=== PATIENT | male | born 1985 | race Caucasian/White ===

== ENCOUNTER 2018-01-15 18:31 | Inpatient (IN) | payer BC, OTHER ==
[~2018-01-15] VITALS: Ht 177.8 cm; Wt 81.6 kg
--- NOTE | 2018-01-15 19:15 | NUR ---
Pre-admission Note Assessment done in intake office. Px appears anxious and depressed. He is disheveled and unshaven with flat affect. A&Ox4. Px is ambulatory with steady gait. Px is here for medically supervised withdrawal from Clonazepam and ETOH. Px has clear and audible speech. VS are as follows BP= 156/110, RI= 70, RR=15, T= 96.5, O2sat= 98% on RA. Px has H/A of 4/10. Px denies any withdrawal-induced seizures. Px brought home medications to be reconciled. Admission process will continue in the unit.
[2018-01-15] MEDS ORDERED: PARO30TA4 PO (19:32)
[2018-01-15] MEDS ORDERED: LOSA100T3 PO (19:33)
[2018-01-15 20:00] VITALS: BP 162/109
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
--- NOTE | 2018-01-15 20:00 | NUR ---
CIWA 17 Px appears anxious and depressed. Px stated that his anxiety is 5-6/10. He has H/A 4/10 and numbness/paresthesia on both LE. Mild stomach cramps is present and mild bilateral hand tremors.
[2018-01-15] MEDS ORDERED: ONDANSETRON ODT 4 MG TAB.RAPDIS SL PRN (20:15)
[2018-01-15] MEDS ORDERED: IBUPROFEN 400 MG TABLET PO PRN (20:15)
[2018-01-15] MEDS ORDERED: ACETAMINOPHEN 325 MG TABLET PO PRN (20:15)
[2018-01-15] MEDS ORDERED: HYDROXYZINE PAMOATE 25 MG CAPSULE PO PRN (20:15)
[2018-01-15] MEDS ORDERED: ONDANSETRON 4 MG/2 ML VIAL IM PRN (20:15)
[2018-01-15] MEDS ORDERED: LORAZEPAM 1 MG TABLET PO PRN ×2 (20:15)
[2018-01-15] MEDS ORDERED: MIRALAX 17 GM POWD.PACK PO PRN (20:15)
[2018-01-15] MEDS ORDERED: THIAMINE HCL 200 MG/2 ML VIAL IM ONE (20:15)
[2018-01-15] MEDS ORDERED: MAG HYDROX/AL HYDROX/SIMETH 30 ML LIQUID UDC PO PRN (20:15)
[2018-01-15] MEDS ORDERED: MAGNESIUM HYDROXIDE 30 ML LIQUID UDC PO PRN (20:15)
[2018-01-15] MEDS ORDERED: LOPERAMIDE HCL 2 MG CAPSULE PO PRN ×2 (20:15)
[2018-01-15] MEDS ORDERED: LORAZEPAM 2 MG/1 ML VIAL IM PRN (20:15)
[2018-01-15 20:45] LABS: *AMPHETAMINE, URINE NEGATIVE (NEGATIVE); *BARBITURATE, URINE NEGATIVE (NEGATIVE); *CANNABINOID, URINE NEGATIVE (NEGATIVE); *COCCAINE, URINE NEGATIVE (NEGATIVE); *OPIATE, URINE NEGATIVE (NEGATIVE); *PHENCYCLIDINE SCREEN,URINE NEGATIVE (NEGATIVE)
[2018-01-15] MEDS: CLONIDINE HCL 0.1 MG TABLET PO PRN (20:59)
--- NOTE | 2018-01-15 20:59 | NUR ---
PRN medications Px received Ativan 2 mg PO for CIWA 17, Clonidine 0.1 mg PO for BP= 162/109, and Tylenol 650 mg PO for H/A of 4/10. We'll continue to monitor.
--- NOTE | 2018-01-15 21:59 | NUR ---
CIWA 12 Px still appears anxious and depressed. Px stated that his anxiety is better. His H/A is gone. Px numbness/paresthesia on both LE is still there. Mild stomach cramps is present and mild bilateral hand tremors.
--- NOTE | 2018-01-15 22:00 | NUR ---
Reassessment of anxiety, H/A and BP Px stated that he feels better now. BP= 146/94. H/A is gone.
[2018-01-15 22:50] LABS: BASOPHILS # (AUTO) 0.1 K/uL (0.0-8.0); BASOPHILS % (AUTO) 0.6 % (0.0-2.0); EOSINOPHILS # (AUTO) 0.1 K/uL (0.0-0.7); EOSINOPHILS % (AUTO) 1.4 % (0.0-7.0); HEMATOCRIT 39.9 % (36.7-47.1); LYMPHOCYTES # (AUTO) 3.7 K/uL (20.0-40.0); LYMPHOCYTES % (AUTO) 38.8 % (20.5-51.5); MEAN CORPUSCULAR HEMOGLOBIN 29.9 uug (23.8-33.4); MEAN CORPUSCULAR HGB CONC 35 g/dL (32.5-36.3); MEAN CORPUSCULAR VOLUME 85.3 fL (73.0-96.2); MONOCYTES # (AUTO) 0.7 K/uL (2.0-10.0); MONOCYTES % (AUTO) 7.6 % (0.0-11.0); NEUTROPHILS # (AUTO) 4.9 K/uL (1.8-8.9); NEUTROPHILS % (AUTO) 51.6 % (38.5-71.5); PLATELET COUNT (AUTO) 154 K/uL (152-348); RED BLOOD CELL COUNT(AUTO) 4.68 MIL/uL (4.06-5.63); WHITE BLOOD COUNT (AUTO) 9.5 K/uL (3.6-10.2)
[2018-01-15 22:53] LABS: ETHANOL < 3 MG/DL (0-0)
[2018-01-15 23:04] LABS: ALANINE AMINOTRANSFERASE 34 U/L (16-63); ALKALINE PHOSPHATASE 75 U/L (50-136); AMYLASE 44 U/L (25-115); ASPARTATE AMINOTRANSFERASE 29 U/L (15-37); BILIRUBIN,TOTAL 0.7 mg/dL (0.2-1.0); CARBON DIOXIDE 30 mmol/L (21-32); CHLORIDE 102 mmol/L (98-107); GLUCOSE 96 mg/dL (74-106); LIPASE 270 U/L (73-393); MAGNESIUM 1.8 mg/dL (1.8-2.4); POTASSIUM 3.7 mmol/L (3.5-5.1); UREA NITROGEN, BLOOD 14 mg/dL (7-18)
[2018-01-16] VITALS: BP 136/88
--- NOTE | 2018-01-16 | NUR ---
CIWA deferred CIWA deferred due to the px is asleep, to assess if the px is awake per doctor's order. We'll continue to monitor.
[2018-01-16 04:00] VITALS: BP 133/85
--- NOTE | 2018-01-16 04:00 | NUR ---
CIWA deferred CIWA deferred due to the px is asleep, to assess if the px is awake per doctor's order. We'll continue to monitor.
--- NOTE | 2018-01-16 07:03 | NUR ---
End of Shift Note During the shift at 2034, px was given Vit B1 100 mg injection IM on his left deltoids as 1x dose. At 2058, px received Ativan 2 mg PO for CIWA 17, Clonidine 0.1 mg PO for high BP and Tylenol 650mg PO for H/A. They were all effective. Px oral intake is 500 ml, voided 2x, without BM. Px slept for 9 hours. Last CIWA 12. At 0630, px is asleep on bed in right side lying position. Bed on lowest position, side rails up 2x, and call light within reach. Px endorsed to AM shift nurse.
--- NOTE | 2018-01-16 07:30 | NUR ---
Start of Shift Network Applications Specialist received report on 25 year old male admitted to [facility] on 01/15/18 for medical management of Benzodiazepine and ETOH withdrawals. Pt endorses NKA, full code and regular diet. Endorses PMH to include HTN and Tinnitus with no seizure history. PPH to include anxiety and depression. Pt to start on a 5 day Phenobarbital taper this am, no previous CIWA due to pts intoxication. Pt was administered Motrin(pain), Zofran(nausea) and Benadryl(insomnia) as PRN medications, per NOC report. Network Applications Specialist encounters pt in pts room with pt resting with eyes closed, even and unlabored respirations noted. Bed in low position with wheels locked and side rails up. Will continue to monitor, support and encourage according to plan of care. Addendum: 01/16/18 at 0857 by RIZWANA MALONEY RN STRIKE NOTE - WRONG PATIENT
--- NOTE | 2018-01-16 07:30 | NUR ---
STRIKE START OF SHIFT - WRONG PT
--- NOTE | 2018-01-16 07:31 | NUR ---
Start of Shift Seasonal Warehouse Associate received report on 32 year old male admitted to [facility] on 01/15/18 for medical management of Benzodiazepine and ETOH withdrawals. Pt endorses NKA, full code and regular diet. Endorses PMH to include HTN and Tinnitus with no seizure history. PPH to include anxiety and depression. Pt to start on a 5 day Phenobarbital taper this am, last CIWA 12, per report. Pt was administered Ativan(anxiety), Clonidine(HTN) and Tylenol(pain) as PRN medications, per NOC report. Seasonal Warehouse Associate encounters pt in pts room with pt resting with eyes closed, even and unlabored respirations noted. Bed in low position with wheels locked and side rails up. Will continue to monitor, support and encourage according to plan of care.
[2018-01-16 08:00] VITALS: BP 137/84
--- NOTE | 2018-01-16 08:00 | NUR ---
CIWA 14 Pt is diaphoretic, tremulous and restless, with complaints of nausea, TH and anxiety. Pt states, " I drank a lot and I feel like I am still hungover." Pt encouraged to get rest and stay hydrated. Will continue to monitor, support and encourage according to plan of care.
[2018-01-16] MEDS: MULTIVITAMINS,THERAPEUTIC TABLET PO SCH (08:40)
[2018-01-16] MEDS: PHENOBARBITAL 60 MG TABLET PO SCH ×3 (08:40→20:22)
[2018-01-16] MEDS: FOLIC ACID 1 MG TABLET PO SCH (08:40)
[2018-01-16] MEDS: THIAMINE HCL 100 MG TABLET PO SCH (08:40)
[2018-01-16] MEDS ORDERED: TUBERCULIN,PURIF.PROT.DERIV. 5 TU/0.1 ML TEST ID ONE (09:00)
--- NOTE | 2018-01-16 12:00 | NUR ---
CIWA 14 Pt remains tremulous, diaphoretic, anxious and restless with complaints of nausea and chills. Will continue to monitor, support and encourage according to plan of care.
[2018-01-16 12:19] VITALS: BP 141/88
--- NOTE | 2018-01-16 13:18 | NUR ---
Therapist prompted client to attend twice daily group therapy sessions and recreational therapy sessions.
[2018-01-16 16:30] VITALS: BP 145/91
--- NOTE | 2018-01-16 16:30 | NUR ---
CIWA 14 Pt remaines diaphoretic, tremulous and anxious with restlessness. Pt has nausea and chills. Pt has been able t orest this shift and medication is effective. Will continue to monitor, support and encourage according to plan of care.
--- NOTE | 2018-01-16 18:52 | NUR ---
End of Shift Repeater Chief provided report on 32 year old male admitted to [facility] on 01/15/18 for medical management of Benzodiazepine and ETOH withdrawals. Pt endorses NKA, full code and regular diet. Endorses PMH to include HTN and Tinnitus with no seizure history. PPH to include anxiety and depression. Pt started on Phenobarbital taper with last CIWA 14 recorded at 1630. Pt was not administered any PRN medications. Pt is A/O x4 and able to make needs known. Calm and cooperative, pleasant with song writer. Flat affect with depressed mood, pt became tearful when speaking of his relationship with his . Repeater Chief encouraged pt to focus on himself. Pt with a linear thought process and clear speech pattern. Pt has been isolative to room, but did attend groups today. Pt is withdrawn and guarded, but appropriate with assessments. Pt complains of nausea, chills and is anxious, restless, diaphoretic and tremulous. Pt has rested in bed, but is up for needs. Bed in low position with wheels locked and side rails up.
--- NOTE | 2018-01-16 19:45 | NUR ---
Start of Shift Note Received a 32 y/o male px, admitted for medically supervised withdrawal from ETOH and Clonazepam. Px was placed on 5 day Phenobarbital taper started on 01/16/2018. Last reported CIWA 14 by AM shift nurse. During the rounds at 1950, px is awake on bed in fowlers position. Px appears anxious and depressed. He disheveled and unshaven. Some drinks noted on top of the bed side table and shelves. Px stated that his anxiety is 7/10, had sweats while sleeping and numbness/pins and needles on both LE. Bilateral hand tremors are also noted. Px was encouraged to take a shower and drink water 2 L daily or as tolerated. Bed on lowest position, side rails up 2x and call light within reach. We'll continue to monitor.
[2018-01-16 20:00] VITALS: BP 141/95
--- NOTE | 2018-01-16 20:00 | NUR ---
CIWA 15 Px appears anxious and depressed. Px stated that his anxiety is 7/10, had sweats while sleeping and numbness/pins and needles on both LE. Bilateral hand tremors are also noted. We'll continue to monitor.
[2018-01-16] MEDS: PAROXETINE HCL 20 MG TABLET PO SCH (20:23)
--- NOTE | 2018-01-16 21:22 | NUR ---
CIWA 13 reassessment Px still appears anxious and depressed. Px stated that his anxiety is better. Px numbness/paresthesia on both LE is still there. Px sweats when asleep. Bilateral hand tremors still noted.
[2018-01-17] VITALS: BP 133/87
--- NOTE | 2018-01-17 | NUR ---
CIWA deferred CIWA deferred due to the px is asleep, to assess if the px is awake per doctor's order. We'll continue to monitor.
[2018-01-17 04:00] VITALS: BP 136/88
--- NOTE | 2018-01-17 04:00 | NUR ---
CIWA deferred CIWA deferred due to the px is asleep, to assess if the px is awake per doctor's order. We'll continue to monitor.
[2018-01-17 07:06] LABS: HEPATITIS B SURFACE AG Negative (Negative)
--- NOTE | 2018-01-17 07:10 | NUR ---
End of Shift Note During the shift, no PRN medication given. Px slept most of the time. Px oral intake is 1500 ml, voided 3x, without BM. Px slept for 9 hours. Last CIWA 13. At 0630, px is asleep on bed in left side lying position. Bed on lowest position, side rails up 2x, and call light within reach. Px endorsed to AM shift nurse.
--- NOTE | 2018-01-17 07:30 | NUR ---
START OF SHIFT Pt 32 y/o male admitted for benzos and etoh withdrawal. Received in room on bed with eyes closed resting. Alert and oriented to name, place, and time. Perrla. Skin warm and moist to touch. Respirations even and unlabored. Bilateral hand tremors noted. Appears disheveled and unkempt. Empty drink bottles scattered throughout the room. Clothes scattered on the floor and chair. Anxious. Restless. Pressured speech noted. Hyperverbal. Poor eye contact, observed staring at the wall when talking to client. Perspiration noted on face. Complaints of generalized discomfort. Complaints of nausea this morning, but refusing to take any medication for it. Encouraged to maintain hygiene. It was reported that pt slept for 9 hours last night. Pt is on a 5 day phenobarbital taper and is on day 3. Last ciwa=13@1999. Bed on lowest position with side rails x2 up for safety. Call light within reach. Addendum: 01/18/18 at 0819 by AGATHA MELCHOR RN correction Pt is on 5 day phenobarbital taper and is on day 2.
[2018-01-17 08:00] VITALS: BP 134/88
--- NOTE | 2018-01-17 08:00 | NUR ---
CIWA ASSESSMENT ciwa=13. Complaints of nausea but refusing to take any medications for it, even with prompting. Bilateral hand gross tremors. Generalized discomfort. Perspiration on face noted. Anxious and restless. Pressured speech noted. Poor eye contact.
[2018-01-17] MEDS: PHENOBARBITAL 60 MG TABLET PO SCH ×4 (08:33→20:22)
[2018-01-17] MEDS: THIAMINE HCL 100 MG TABLET PO SCH (08:33)
[2018-01-17] MEDS: FOLIC ACID 1 MG TABLET PO SCH (08:33)
[2018-01-17] MEDS: MULTIVITAMINS,THERAPEUTIC TABLET PO SCH (08:33)
--- NOTE | 2018-01-17 12:00 | NUR ---
CIWA ASSESSMENT ciwa=13. Anxious and restless. Bilateral gross hand tremors noted. Perspiration on face noted. Not able to sit still. Pressured speech. Irritable. Generalized discomfort.
[2018-01-17 12:13] VITALS: BP 137/94
--- NOTE | 2018-01-17 13:34 | NUR ---
Client was prompted to attend twice daily group therapy sessions.
[2018-01-17 16:00] VITALS: BP 142/87
--- NOTE | 2018-01-17 16:00 | NUR ---
CIWA ASSESSMENT ciwa=13. Perrla. Skin warm and moist to touch. Bilateral hand tremors noted. Also with episodes of bilateral arm tremors noted. Irritable. Pressured speech noted. Generalized discomfort. Perspiration on face noted.
--- NOTE | 2018-01-17 18:37 | NUR ---
END OF SHIFT Pt 32 y/o male admitted for benzos and etoh withdrawal. Alert and oriented to name, place, and time. Perrla. Skin warm and moist to touch. Respirations even and unlabored. Bilateral hand tremors and episodes of resting bilateral arm tremors noted. Apppears disheveled and unkempt. Clothes and empty drinking bottles scattered throughout the room. Anxious and restless, not able to sit still. Irritable. Pressured speech. Generalized discomfort. Encouraged to maintain hygiene. Pt did not attend group activity today. Isolative to room with no peer interaction. Low motivation for self care. Was seen by MD today. Medication compliant. Pt is on a 5 day Phenobarbital and is on day 3. Last ciwa=13@1600. Complaints of nausea this morning, but refused any prn medication , even with encouragement. Bed on lowest position with side rails x2 up for safety. Call light within reach. Addendum: 01/18/18 at 0818 by AGATHA MELCHOR RN correction Pt is on 5 day phenobarbital taper and is on day 2.
--- NOTE | 2018-01-17 19:30 | NUR ---
Start of shift note Received report from day shift Nurse. Patient is a 32 year old male admitted for Benzo and ETOH withdrawal. Patient is on 5 day Phenobarbital taper. Patient with history of hypertension. Last BP- 142/87. Patient did not require PRN medication. Last CIWA 13. Patient alert and oriented x 4. Patient presents with flat affect, depressed mood, unshaven, flushed face, worried, anxiety, restless legs, bilateral hand tremors, headache and back pain. Encourage fluids. Safety measures in place. Call light in reach. Will continue to monitor.
[2018-01-17 20:00] VITALS: BP 136/84
--- NOTE | 2018-01-17 20:00 | NUR ---
CIWA assessment Patient presents with anxiety, restless, worried, bilateral hand tremors, sweating, chills, restless legs, headache and back pain. CIWA 14.
[2018-01-17] MEDS: PAROXETINE HCL 20 MG TABLET PO SCH (20:23)
[2018-01-18] VITALS: BP 137/89
--- NOTE | 2018-01-18 | NUR ---
CIWA assessment Patient present with anxiety, restlessness and difficulty sleeping. CIWA 10. Will continue to monitor.
[2018-01-18] MEDS: diphenhydrAMINE 50 MG CAPSULE PO PRN (00:14)
--- NOTE | 2018-01-18 00:14 | NUR ---
PRN Benadryl administration Patient requests for sleep aid. Will continue to monitor
--- NOTE | 2018-01-18 01:14 | NUR ---
PRN Jakeadryl re-assessment Patient in bed with eyes closed. Respiration even and unlabored. Will continue to monitor.
[2018-01-18 04:00] VITALS: BP 134/72
--- NOTE | 2018-01-18 04:00 | NUR ---
CIWA deferred Patient in bed with eyes closed. Respiration even and unlabored. Will continue to monitor.
--- NOTE | 2018-01-18 07:25 | NUR ---
End of shift note Patient slept 8 hours. Fluid intake 796 ml. Voided x 1. No BM. Continue on Phenobarbital taper, tolerated well and no adverse reaction . Patient presented with flat affect, depressed mood, unshaven, flushed face, worried, anxiety, restless legs, bilateral hand tremors, headache and back pain. Scheduled medication and taper given. PRN Benadryl given for sleep. Encourage fluids. Encourage to attend and participate in activities. Safety measures in place. Call light in reach. Will continue to monitor. Last CIWA 10.
--- NOTE | 2018-01-18 07:30 | NUR ---
START OF SHIFT Pt 32 y/o male admitted for benzos and etoh withdrawal. Received in room on bed with eyes closed resting. Alert and oriented to name, place, and time. Perrla. Skin warm and moist to touch. Respirations even and unlabored. Bilateral hand tremors noted.Pt appears disheveled and unkempt. Clothes, food wrappings, and empty drink bottles scattered throughout the room. Anxious and restless. Not able to lay still. Episodes of resting bilateral arm tremors noted. Pressured speech and hyperverbal. Complaints of perspiration this morning. States feels , "uneasy and not relaxed". Generalized discomfort. Encouraged to maintain hygiene. It was reported that pt slept for 8 hours last night. Last ciwa=10 @0000. Pt is on a 5 day phenobarbital taper and is on day 3. Bed on lowest position with side rails x2 up for safety. Call light within reach.
[2018-01-18 08:00] VITALS: BP 147/93
--- NOTE | 2018-01-18 08:00 | NUR ---
CIWA ASSESSMENT ciwa=12. Bilateral hand tremors and resting bilateral arm tremors. Anxious and restless. Irritable and anxious. Not able lay still in bed. Pressured speech . Complaints of perspiration. Generalized discomfort.
[2018-01-18] MEDS: THIAMINE HCL 100 MG TABLET PO SCH (08:42)
[2018-01-18] MEDS: PHENOBARBITAL 60 MG TABLET PO SCH ×3 (08:42→21:41)
[2018-01-18] MEDS: MULTIVITAMINS,THERAPEUTIC TABLET PO SCH (08:42)
[2018-01-18] MEDS: FOLIC ACID 1 MG TABLET PO SCH (08:42)
[2018-01-18 12:00] VITALS: BP 149/93
--- NOTE | 2018-01-18 12:00 | NUR ---
CIWA ASSESSMENT ciwa=12. Anxious and restless. Not able to sit still. Irritable. Bilateral hand tremors noted. Pressured speech noted. Flat affect. Poor eye contact. Disheveled. Complaints of generalized discomfort.
[2018-01-18 16:00] VITALS: BP 150/108
--- NOTE | 2018-01-18 16:00 | NUR ---
CIWA ASSESSMENT ciwa=12. Bilateral hand tremors. Anxious and restless. Stated," the group was intense. Really got to me. It really got me anxious." Perspiration noted. Irritable. Generalized discomfort.
[2018-01-18] MEDS: CLONIDINE HCL 0.1 MG TABLET PO PRN (17:08)
--- NOTE | 2018-01-18 17:09 | NUR ---
PRN CATAPRES Pt with nj=969/103. Catapres po prn per MD order given and tolerated well.
--- NOTE | 2018-01-18 18:49 | NUR ---
END OF SHIFT Pt 32 y/o male admitted for benzos and etoh withdrawal. Alert and oriented to name, place, and time. Perrla. Skin warm and moist to touch. Respirations even and unlabored. Bilateral hand tremors noted. Appears disheveled and unkempt. Clothes and empty drink bottles scattered throughout the room. Restless and anxious. Pressured speech. Generalized discomfort. Encouraged to maintain hygiene. Isolative to room today. Low motivation for self care. Attended group activity. Medication compliant. Last ciwa=12 @ 1600. Pt is on a 5 day Phenobarbital taper and is on day 3. Bed on lowest position with side rails x2 up for safety. Call light within reach.
--- NOTE | 2018-01-18 19:10 | NUR ---
Start of shift note Received report from day shift nurse. Pt is a 32 yo male, A+ox4, presenting to [facility] for medically supervised Benzo/ETOH withdrawal. Pt noted with anxiety, agitation, and restlessness. Pt has HX of HTN, PNA, URI, anemia, anxiety, depression, and Right thoracic SX. Pt is on 5 day Phenobarbital taper, tolerated well. Respirations even and unlabored. Will continue to monitor.
--- NOTE | 2018-01-18 20:10 | NUR ---
CIWA Assessment CIWA: 10. Pt noted with fine tremors, sweat on brow, anxiety, and agitation. Respirations even and unlabored. Will continue to monitor.
[2018-01-18 20:30] VITALS: BP 135/84
[2018-01-18] MEDS: PAROXETINE HCL 20 MG TABLET PO SCH (21:41)
--- NOTE | 2018-01-19 00:55 | NUR ---
V/S refused and CIWA assessment deferred for sleep. Respirations even and unlabored. Will continue to monitor.
--- NOTE | 2018-01-19 04:33 | NUR ---
V/S refused and CIWA deferred for sleep. Respirations even and unlabored. Will continue to monitor.
--- NOTE | 2018-01-19 07:00 | NUR ---
End of shift note Pt was continuously noted with restlessness, agitation, and anxiety. Pt remained in room for majority of shift except to get food from kitchen and to go smoke on smoking patio. Pt remained cooperative and compliant with all aspects of treatment. Pt was not given any PRN medications during shift. Pt is on 5 day Phenobarbital taper, tolerated well. Pt slept for a total of 6 HRS. Last CIWA: 10 @2000. Respirations even and unlabored. Will endorse to day shift nurse.
--- NOTE | 2018-01-19 07:30 | NUR ---
START OF SHIFT Pt 32 y/o male admitted for bzo and etoh withdrawal. Received in room on bed with eyes closed resting, but easily arousable to name. Alert and oriented to name, place, and time. Perrla. Skin warm and moist to touch. Respirations even and unlabored. Bilateral hand tremors noted. Appears disheveled. Hair uncombed. Anxious. Complaints of generalized discomfort. Encouraged to maintain hygiene. Low motivation for self care. It was reported that pt slept for 6 hours last night. Last ciwa=10@2000. Pt is on a 5 day phenobarbital taper and is on day 4. No PRNS given last night. Bed on lowest position with side rails x2 up for safety. Call light within reach.
[2018-01-19 08:00] VITALS: BP 134/87
--- NOTE | 2018-01-19 08:00 | NUR ---
CIWA ASSESSMENT ciwa=10. Anxious and restless. Pt states, "I feel uneasy". Bilateral hand tremors noted. Complaints of intermittent perspiration. Irritable. Pressured speech noted.
[2018-01-19] MEDS: FOLIC ACID 1 MG TABLET PO SCH (08:21)
[2018-01-19] MEDS: MULTIVITAMINS,THERAPEUTIC TABLET PO SCH (08:21)
[2018-01-19] MEDS: THIAMINE HCL 100 MG TABLET PO SCH (08:21)
[2018-01-19] MEDS: PHENOBARBITAL 60 MG TABLET PO SCH ×2 (08:22→20:57)
[2018-01-19 12:00] VITALS: BP 141/69
--- NOTE | 2018-01-19 12:00 | NUR ---
CIWA ASSESSMENT ciwa=10. Bilateral hand tremors. Irritable. Anxious and restless. Not able to lay still. Generalized discomfort. Intermittent perspiration.
[2018-01-19] MEDS: CLONIDINE HCL 0.1 MG TABLET PO PRN (12:22)
--- NOTE | 2018-01-19 12:23 | NUR ---
PRN CATAPRES VISTARIL Pt states is anxious. Fidgety. Vistaril po prn per MD order given and tolerated well. RO=402/103. catapres po prn per MD order given and tolerated well.
--- NOTE | 2018-01-19 13:23 | NUR ---
PRN CATAPRES VISTARIL EVAL Pt states vistaril effective. yo=482/88
[2018-01-19 16:00] VITALS: BP 120/77
--- NOTE | 2018-01-19 16:00 | NUR ---
CIWA ASSESSMENT ciwa=10. Anxious and restless. Pressured speech when talking. Not able to lay still. Irritable. Generalized discomfort. Complaints of perspiration episodes. Bilateral hand tremors.
--- NOTE | 2018-01-19 18:40 | NUR ---
END OF SHIFT Pt 32 y/o male admitted for benzos and etoh withdrawal. Alert and oriented to name, place, and time. Perrla. Skin warm and moist to touch. Respirations even and unlabored. Bilateral hand tremors noted. Appears disheveled and unkempt. Empty drink bottles scattered throughout the room. Anxious and restless. Pressured speech. Fidgety. Irritable. Generalized discomfort. Encouraged to maintain hygiene. Isolative to room with minimal peer interaction. Attended group activity. Low motivation for self care. Was seen by MD today. Medication compliant. Pt is on a 5 day Phenobarbital taper and is on day 4. Last ciwa= 10@1600. Vistaril po prn per MD order given today for anxiety. Bed on lowest position with side rails x2 up for safety. Call light within reach.
--- NOTE | 2018-01-19 19:30 | NUR ---
Start of Shift Pt admitted 01/15/18 for medically managed withdrawal from Clonazepan and ETOH. Pt is listed as a full code with NKA's and on a regular diet. Pt is on day 4 of a 5 day Phenobarbital taper. Pt presenting with flat affect, anxiety, restlessness, fast speech, linear thought. Room appears disheveled with clothes scattered and emptly food and drink containers laying about. Pt with no c/o's body or joint discomfort, denies SI/HI or A/V/T hallucinations. Last reported CIWA 10 at 1600. Full safety measures in place, with bed locked and in lowest position, side rails x 2 up and call clay within reach with frequent rounding. Will continue to monitor for duration of shift, promptly attending to all s/sx's distress or w/d.
[2018-01-19 20:00] VITALS: BP 140/84
--- NOTE | 2018-01-19 20:00 | NUR ---
Evening Rounds CIWA 10, aeb anxiety and agitation, fatigue, fine tremors, difficulty concentrating, depression, anhedonia, diaphoresis, difficulty sleeping, HTN.
[2018-01-19] MEDS: diphenhydrAMINE 50 MG CAPSULE PO PRN (20:57)
--- NOTE | 2018-01-19 20:57 | NUR ---
PRN Med Benedryl 50mg PO given for insomnia. Will continue to monitor and reassess in 1 hour
[2018-01-19] MEDS: PAROXETINE HCL 20 MG TABLET PO SCH (20:58)
--- NOTE | 2018-01-19 21:57 | NUR ---
PRN Reassessment Benedryl 50mg PO given for insomnia 1 hour prior. At present pt is resting with eyes closed, RR 16, even and nonlabored. Med effective
[2018-01-20] VITALS: BP 124/91
--- NOTE | 2018-01-20 | NUR ---
Midnight Rounds VS's obtained and stable. CIWA deferred r/t pt somnalance. Will continue to monitor and promptly attend to all s/sx's w/d or distress noted.
[2018-01-20 04:00] VITALS: BP 113/64
--- NOTE | 2018-01-20 04:00 | NUR ---
Morning Rounds VS's obtained, HR 49, BP 113/64. CIWA deferred r/t pt somnalance. Will continue to monitor and promptly attend to all s/sx's w/d or distress noted.
--- NOTE | 2018-01-20 07:40 | NUR ---
START OF SHIFT NOTE Received report from night nurse 32 year old male admitted for ETOH and continues on 5 Phenobarbital taper tolerating well. Per endorsement patient was given PRN Benadryl slept for 6 hours and last CIWA score was 10. Received patient alert awake oriented x4, educated patient regarding plan of the day and medications regimen with good verbal understanding. All safety measures in place call light within reach. Will cont to monitor.
--- NOTE | 2018-01-20 07:43 | NUR ---
End of Shift Endorsement given to day nurse. Pt admitted 01/15/18 for medically managed withdrawal from Clonazepan and ETOH. Pt is listed as a full code with NKA's and on a regular diet. Pt is on day 5 of a 5 day Phenobarbital taper. Room disheveled with odor, pt unshaven with uncombed hair, ADL's should be encouraged. Affect remains flat with loud speech, pt appearing depressed and worried. Pt slept for 7 hours with 1150 mls intake and 2 voids, Benedryl sole PRN for the shift. Last CIWA 10 at 2000 hours. Full safety measures in place, with bed locked and in lowest position, side rails x 2 up and call clay within reach with frequent rounding. Will continue to monitor for duration of shift, promptly attending to all s/sx's distress or w/d.
--- NOTE | 2018-01-20 08:00 | NUR ---
CIWA ASSESSMENT CIWA score noted-11, patient presented with anxiety, agitation, restless, bilateral hand tremors, light headed, sweats. Patient is due for schedule medication. Will cont to monitor.
[2018-01-20 08:01] VITALS: BP 118/75
[2018-01-20] MEDS: FOLIC ACID 1 MG TABLET PO SCH (08:29)
[2018-01-20] MEDS: THIAMINE HCL 100 MG TABLET PO SCH (08:29)
[2018-01-20] MEDS: MULTIVITAMINS,THERAPEUTIC TABLET PO SCH (08:29)
[2018-01-20] MEDS ORDERED: PHENOBARBITAL 60 MG TABLET PO SCH (09:00)
[2018-01-20 12:00] VITALS: BP 135/91
--- NOTE | 2018-01-20 12:00 | NUR ---
CIWA ASSESSMENT CIWA score noted-9, patient presented with anxiety, agitation, restless, bilateral hand tremors, decreased sweats. Will cont to monitor.
--- NOTE | 2018-01-20 13:18 | NUR ---
Therapist prompted client to attend group therapy sessions twice daily.
[2018-01-20 16:00] VITALS: BP 163/102
--- NOTE | 2018-01-20 16:00 | NUR ---
CIWA ASSESSMENT CIWA score noted-7, patient stated decreased in anxiety, agitation, restless, sweats. Will cont to monitor.
[2018-01-20] MEDS: CLONIDINE HCL 0.1 MG TABLET PO PRN (16:45)
--- NOTE | 2018-01-20 16:45 | NUR ---
PRN CLONIDINE Patient's blood pressure noted 163/102. PRN Clonidine 0.1mg PO given as ordered. Will cont to monitor and reassess.
--- NOTE | 2018-01-20 17:45 | NUR ---
CLONIDINE REASSESSMENT Patient blood pressure noted 148/92, Clonidine 0.1mg was effective.
--- NOTE | 2018-01-20 19:02 | NUR ---
END OF SHIFT NOTE Gave report to night nurse, patient admitted for ETOH withdrawal and completed his Phenobarbital taper tolerated well. Patient was presented with flat affect, pressured speech, anxiety, agitation, restless, high blood pressure. During shift patient was given scheduled medications along with PRN Clonidine 0.1mg PO noted to be effective. Patient schedule to discharge in AM. Patient is compliant with medications and treatment plan. Last CIWA score was -7. All safety measures in place. Patient endorsed to night nurse in stable condition.
--- NOTE | 2018-01-20 19:30 | NUR ---
Start of Shift Patient Received. Per endorsement, patient is noted to have completed a 5 day Phenobarbital taper and is set for discharge tomorrow 01/21/18. Patient has been noted to be compliant with group and social activities. He received PRN Clonidine with medication noted to be effective. Last noted CIWA 7. Upon rounds patients room was noted to be unkempt, clothes noted to throughout room, food and drinks cluttered on bedside table. Will continue plan of care as ordered.
[2018-01-20 20:20] VITALS: BP 142/92
[2018-01-20] MEDS: PAROXETINE HCL 20 MG TABLET PO SCH (21:28)
[2018-01-20] MEDS: diphenhydrAMINE 50 MG CAPSULE PO PRN (21:28)
--- NOTE | 2018-01-20 21:30 | NUR ---
PRN MEDICATION ADMINISTRATION Pt verbalizing difficulty falling asleep. Benadryl 50mg PO as ordered given at this time for sleep per pt request. Will re-evaluate in 1 hour.
--- NOTE | 2018-01-20 22:24 | NUR ---
Start of Shift Patient Received. Per endorsement, patient is noted to have completed a 5 day Phenobarbital taper and is set for discharge tomorrow 01/21/18. Patient has been noted to be compliant with group and social activities. He received PRN Clonidine with medication noted to be effective. Last noted CIWA 7. Upon rounds patients room was noted to be unkempt, clothes noted to throughout room, food and drinks cluttered on bedside table. Will continue plan of care as ordered. Addendum: 01/20/18 at 2225 by ZEKE GUTIERREZ LVN ENTERED IN ERROR
--- NOTE | 2018-01-20 23:34 | NUR ---
PRN MEDICATION Re-ASSESSMENT PRN Benadryl effective. Pt is in bed with his eyes closed, respiration are even and non-labored.
--- NOTE | 2018-01-21 00:06 | NUR ---
Vitals Patient is noted in bed with eyes closes. Breathing even and non labored. Patient noted to refuse vitals. respirations noted to be 16. CIWA not able to be completed as per order. Will continue to monitor.
--- NOTE | 2018-01-21 04:22 | NUR ---
Vitals Refused Patient is noted in bed with eyes closed. Breathing even and non labored. No restlessness or discomfort noted. No facial grimacing noted. Vitals refused. Respirations noted to be 16. CIWA not able to be completed as per ordered. Will continue to monitor.
--- NOTE | 2018-01-21 07:03 | NUR ---
End of Shift Patient is noted in bed with eyes closed. Breathing even and non labored. Patient is noted to complete a 5 day Phenobarbital taper and is set for discharge today 01/21/18. Patient was noted to participate in group and social activities. He received PRN Benadryl for inability of falling asleep with medication noted to be effective. Patient noted to sleep a total of 6 hours. Last noted CIWA 5. All needs attended to promptly. Will endorse to continue plan of care as ordered.
--- NOTE | 2018-01-21 07:30 | NUR ---
START OF SHIFT NOTE Received report from night nurse 32 year old male admitted for ETOH and completed his 5 Phenobarbital taper tolerated well. Per endorsement patient was given PRN Benadryl effective per night nurse, slept for 6 hours and last CIWA score was 5. Received patient alert awake oriented x4, Patient set for discharge at 0900. Educated patient being compliant with medications regimen and treatment plan at treatment center. Patient verbal understanding. All safety measures in place call light within reach. Will cont to monitor.
[2018-01-21 08:00] VITALS: BP 117/70
[2018-01-21] MEDS: MULTIVITAMINS,THERAPEUTIC TABLET PO SCH (08:04)
[2018-01-21] MEDS: THIAMINE HCL 100 MG TABLET PO SCH (08:04)
[2018-01-21] MEDS: FOLIC ACID 1 MG TABLET PO SCH (08:04)
--- NOTE | 2018-01-21 09:28 | NUR ---
DISCHARGE NOTE Patient discharge from [facility] in stable condition. Patient completed his taper tolerated well. Vital signs WNL. Patient denies nay SI/HI. All discharge paper work completed signed and dated. All personal belongings returned to the patient including prescription,medications he brought from home. Patient discharge from [facility] to the [facility] on 01/21/18 at 0928. notified.
== END 2018-01-21 09:28 | disposition home or self-care (01) | DRG 895 ==
LOC: SRC 18:44
PROVIDERS: ADMIT Family Medicine Addiction Medicine; ATTEND Family Medicine Addiction Medicine
PROC: HZ2ZZZZ Detoxification Services for Substance Abuse Treatment (ICD-10-PCS; principal; 2018-01-15)
PROC: HZ41ZZZ Group Counseling for Substance Abuse Treatment, Behavioral (ICD-10-PCS; 2018-01-16)
PROC: HZ31ZZZ Individual Counseling for Substance Abuse Treatment, Behavioral (ICD-10-PCS; 2018-01-17)
DX: F10.230 Alcohol dependence with withdrawal, uncomplicated (principal); F33.1 Major depressive disorder, recurrent, moderate; F13.230 Sedative, hypnotic or anxiolytic dependence with withdrawal, uncomplicated; Y90.0 Blood alcohol level of less than 20 mg/100 ml; F41.9 Anxiety disorder, unspecified; Z87.01 Personal history of pneumonia (recurrent); Z81.1 Family history of alcohol abuse and dependence; I10 Essential (primary) hypertension; Z79.899 Other long term (current) drug therapy; Z87.891 Personal history of nicotine dependence
CPT/HCPCS: 36415; 70030-TC; 80307; 83690; 83735; 84443; 85025; 86592; 86705; 86803; 87340; 87806; G0480; J3411; J8499; Q0163